=== PATIENT | female | born 1985 | race Caucasian/White ===

== ENCOUNTER → 2017-12-05 | Outpatient (REF) | payer OTHER | LOC: M LAB REF 18:23 | DX: R05 Cough (principal); R68.83 Chills (without fever) | CPT/HCPCS: 87633 ==

== ENCOUNTER → 2020-01-16 | Outpatient (REF) | payer OTHER ==
[~2020-01-16] MED LIST: COLA100C5 PO; MOTR200T44 PO; TYLE325T5 PO
[2020-01-16 22:36] LABS: INFLUENZA A AMPLIFICATION NEGATIVE (NEGATIVE); INFLUENZA B AMPLIFICATION POSITIVE (NEGATIVE)
== END ==
LOC: M LAB REF 21:48
PROVIDERS: ATTEND Physician Assistant
DX: J11.1 Influenza due to unidentified influenza virus with other respiratory manifestations (principal)